=== PATIENT | female | born 1985 | race Asian ===

== ENCOUNTER 2016-12-08 21:10 | Emergency (ER) | payer BC ==
[~2016-12-08] VITALS: Ht 162.6 cm; Wt 63.5 kg
--- NOTE | 2016-12-09 01:57 | Emergency Room Report ---
History of Present Illness General Chief Complaint: Alcohol Intoxication Source: Patient Present Illness HPI 31-year-old female presents ED for evaluation. Per EMS patient was found on the street intoxicated. No signs of trauma. Patient brought in crying. States she was asleep. Admits to alcohol use. Denies any drug use. Denies any abdominal pain nausea or vomiting. Denies chest pain shortness of breath. Denies any suicidal or homicidal ideation. Denies hearing voices. No other aggravating or relieving factors. Denies any other associated symptoms Allergies: Coded Allergies: No Known Allergies (Unverified , 12/08/16) Patient History Past Medical History: none Past Surgical History: none Pertinent Family History: none Social History: Reports: alcohol use, Denies: drug use, smoking Last Menstrual Period: UNK Now: No Immunizations: UTD Reviewed Nursing Documentation: PMH: Agreed, PSxH: Agreed Nursing Documentation-PMH Past Medical History: No Stated History Review of Systems All Other Systems: negative except mentioned in HPI Physical Exam Vital Signs Date Time Temp Pulse Resp B/P Pulse Ox O2 Delivery O2 Flow Rate FiO2 12/08/16 21:05 98.1 96 18 140/82 98 Room Air Sp02 EP Interpretation: reviewed, normal General Appearance: no apparent distress, alert, GCS 15, non-toxic Head: normocephalic Eyes: bilateral eye PERRL, bilateral eye normal inspection ENT: normal ENT inspection Neck: normal inspection Respiratory: chest non-tender, lungs clear, normal breath sounds, speaking full sentences Cardiovascular #1: regular rate, rhythm, no edema Gastrointestinal: normal bowel sounds, non tender, soft, non-distended, no guarding, no rebound Rectal: deferred Genitourinary: no CVA tenderness Musculoskeletal: normal inspection Neurologic: alert, oriented x3, responsive, motor strength/tone normal, sensory intact, speech normal Psychiatric: normal inspection Skin: normal inspection Lymphatic: normal inspection Medical Decision Making Diagnostic Impression: Primary Impression: Acute alcoholic intoxication Qualified Codes: F10.129 - Alcohol abuse with intoxication, unspecified ER Course Hospital Course 31-year-old female presents to ED status post EtOH intoxication. Clinical course Patient placed on stretcher. Given that patient is able to provide an adequate history, I see no need to check blood work or place an IV. Patient allowed to sleep. My assessment shows no evidence of SI/HI requiring psychiatric evaluation. Patient allowed to rest in now awake alert oriented x3. ambulating without difficulty. Diagnosis - ETOH intoxication stable and discharged to home. Followup with PMD. Return to ED if symptoms recur or worsen Last Vital Signs Date Time Temp Pulse Resp B/P Pulse Ox O2 Delivery O2 Flow Rate FiO2 12/08/16 21:05 98.1 96 18 140/82 98 Room Air Status: improved Disposition: HOME, SELF-CARE Condition: Stable Referrals: NOT CHOSEN [place]/,REFERRING (PCP) CARLYLE WOODSON M.D. December 09, 2016 01:57
[2016-12-09 03:03] VITALS: BP 105/67
[2016-12-09 03:07] VITALS: BP 105/67
== END 2016-12-09 03:09 | disposition home or self-care (01) ==
LOC: EDBD 21:10 → EMR 21:23
DX: F10.129 Alcohol abuse with intoxication, unspecified (principal)
CPT/HCPCS: 99284